=== PATIENT | male | born 1995 | race Caucasian/White ===

== ENCOUNTER 2021-12-25 09:21 | Day surgery (SDC) | payer OTHER ==
[~2021-12-25] VITALS: Ht 190.5 cm; Wt 80.3 kg
[~2021-12-25 09:21] MED LIST: ACET1TAB55 PO; LUNE2TAB23 PO; NS 1,000 ML IV ONE; OMEP40CA4 PO
[2021-12-25] MEDS ORDERED: propofoL 200 MG/20 ML VIAL As Ordered ONE (10:45)
[2021-12-25] MEDS ORDERED: LIDOCAINE 2% 100MG/5ML SDV (FOR ANES.) As Ordered ONE (10:45)
[2021-12-25] MEDS ORDERED: fentaNYL 100 MCG/2 ML INJECTION As Ordered ONE (10:45)
[2021-12-25 12:10] VITALS: BP 125/87
== END 2021-12-25 12:17 | disposition home or self-care (01) ==
LOC: M OPP 09:21
PROVIDERS: ATTEND Internal Medicine Gastroenterology
DX: R12 Heartburn (principal); K22.89 Other specified disease of esophagus; K31.89 Other diseases of stomach and duodenum; R11.0 Nausea; Z79.899 Other long term (current) drug therapy; Z88.0 Allergy status to penicillin; Z88.8 Allergy status to other drugs, medicaments and biological substances
CPT/HCPCS: 43239; 88305; J3010

== ENCOUNTER → 2025-01-25 | Outpatient (CLI) | payer OTHER ==
[~2025-01-25] MED LIST changes: +ISOVUE-370 76% 100ML VIAL ONE; -LUNE2TAB23 PO; +LUNE2TAB28 PO; +MELA3TAB49 PO; -NS 1,000 ML IV ONE
== END ==
LOC: M PLAIMG 14:46
PROVIDERS: ATTEND Physician Assistant
DX: R10.32 Left lower quadrant pain (principal)
CPT/HCPCS: 74178; Q9967

== ENCOUNTER 2025-02-01 07:01 | Day surgery (SDC) | payer OTHER ==
[~2025-02-01] VITALS: Ht 190.5 cm; Wt 85.5 kg
[~2025-02-01 07:01] MED LIST changes: -ISOVUE-370 76% 100ML VIAL ONE
[2025-02-01] MEDS ORDERED: propofoL 200 MG/20 ML VIAL As Ordered ONE (07:31)
[2025-02-01 07:53] VITALS: TEMP 97.5
[2025-02-01 08:15] VITALS: BP 146/79; O2SAT 100
== END 2025-02-01 08:24 | disposition home or self-care (01) ==
LOC: M OPP 07:01
PROVIDERS: ATTEND Surgery
DX: K63.5 Polyp of colon (principal); K64.0 First degree hemorrhoids; R10.32 Left lower quadrant pain; Z88.0 Allergy status to penicillin; Z88.1 Allergy status to other antibiotic agents; Z88.8 Allergy status to other drugs, medicaments and biological substances; Z79.899 Other long term (current) drug therapy